=== PATIENT | female | born 1960 | race Caucasian/White ===

== ENCOUNTER 2016-10-30 06:58 | Day surgery (SDC) | payer OTHER, MEDICAID ==
--- NOTE | 2016-10-23 12:09 | MH ---
cc: HOLLEY TALBOT M.D. DATE OF ADMISSION: 10/30/2016 ADMITTING DIAGNOSIS Neck pain. The patient requires CT myelogram. HISTORY OF PRESENT ILLNESS This is a 56-year-old female who presented to us for evaluation of neck pain. She rates her neck pain as 9-10/10. 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 She states the left arm has been numb since then but for the last month she has noticed increased numbness in all distributions. She denies any right upper extremity radiculopathy or paresthesias. She has had physical therapy three years ago and had pain management with three epidural steroid injections which did not help. She has left hemiparesis from her stroke which effected the left upper extremity more than the left lower extremity. She is right-handed. Because of the cerebral aneurysm clipping she cannot have an MRI scan and relates that her last follow-up on the status of the aneurysm clips was about 5 years ago and did not notice any recurrence. She does not recall ever having a spinal myelogram before. PAST MEDICAL HISTORY 1. Two cerebral aneurysm clips April 02, 1994. 2. Tubal ligation 1989. 3. Kidney stones. 4. Radiofrequency ablation 2013. MEDICATIONS Current medications: 1. Diclofenac sodium 50 mg three times a day. 2. Fluticasone nasal spray 50 mcg each naris b.i.d. 3. Trazodone 50 mg p.o. q.h.s. 4. Levocetirizine 5 mg p.o. daily. 5. Levetiracetam ER 500 mg daily. 6. Baclofen 10 mg p.o. t.i.d. p.r.n. muscle spasms. 7. Hydrocodone/acetaminophen 7.5/325 mg p.o. q.6h. p.r.n. pain. 8. Omeprazole 40 mg p.o. daily. ALLERGIES 1. PENICILLIN. 2. DILANTIN. FAMILY HISTORY Noncontributory. SOCIAL HISTORY She drinks 0-2 drinks per day. She denies any substance abuse. REVIEW OF SYSTEMS GENERAL: She denies any fever or chills. EARS, NOSE, AND THROAT: No pharyngitis, exudates or bloody drainage from her nose. CARDIOVASCULAR: She denies any chest pain or palpitations. RESPIRATORY: No cough or shortness of breath. GASTROINTESTINAL: No nausea, vomiting or abdominal pain. INTEGUMENTARY: No rashes or pruritus. NEUROLOGIC: No difficulty with speech or memory. MUSCULOSKELETAL: Positive for neck pain. PSYCHIATRIC: Positive for anxiety and depression symptoms. HEMATOLOGIC: No bruising or bleeding tendencies. PHYSICAL EXAMINATION HEAD: Normocephalic, atraumatic. NECK: Supple. No carotid bruits heard on auscultation. LUNGS: Clear to auscultation bilaterally. HEART: Regular rate and rhythm. Normal S1, S2. ABDOMEN: Soft, nontender. Positive bowel sounds. SKIN: No cyanosis or erythema. MUSCULOSKELETAL: She has left hemiparesis in the left upper extremity more than the left lower extremity. She has difficulty with fine motor skills in the left hand. She ambulates without any assistive device. NEUROLOGIC: She is awake, alert and oriented. Cranial nerves II-XII appear grossly intact. Her speech is fluent. Comprehension is good. Sensation is diminished in the left upper extremity in all distributions. DATA REVIEWED CT of the cervical spine from May 15, 2016 reveals severe degenerative disc disease with disc osteophyte complex at the C4-C5 and C5-C6 level, and to a lesser extent the C6-C7 level. There appears to be posterior osteophytes at the C5-C6 level with some degree of stenosis. It is hard to delineate on plain CT scan. IMPRESSION A 55-year-old female with a chronic history of neck pain that radiates into the left upper extremity down to the forearm but not the hand. She also has chronic back pain. She has a remote history of cerebral aneurysm clipping with consequent stroke and left-sided weakness involving the arm and hand. She has had physical therapy for her neck in the past and frequently gets chiropractic treatments by a close friend who is a chiropractor. She also relates that the pain medications are not helping and she has develop tolerance being on the same medication for a long period of time. Her neck pain is worse over the last couple of months. She does have multilevel degenerative disc disease worse at the C5-C6 level, but also involving the C4-C5 and C6-C7 levels with osteophytes. PLAN We have recommended that she continue with pain management and conservative treatment measures, particularly cervical spinal stabilization and stretching exercises with heat and massage. We will obtain a CT myelogram to further evaluate the degree of stenosis. The patient is in agreement with the treatment plan and she is therefore scheduled accordingly. She will subsequently follow-up with us for further discussion of her results. Dictated by: Darion Baugh PA-C MD DIOGENES Murphy/TYLER /11:28 AM /11:56 AM
[~2016-10-30] VITALS: Ht 157.5 cm; Wt 56.8 kg
[~2016-10-30 06:58] MED LIST: BACL10TA PO; DICL50TA3 PO; FLUT50SP EACH NARE; HYDR-3580 PO; IPRA1POW8; LEVE500T11 PO; LEVOTAB PO; OMEP40CA2 PO; TRAZ50TA12 PO
[2016-10-30 07:19] VITALS: BP 151/97; PULSE 75; RESP 20; TEMP 97.7; O2SAT 95
[2016-10-30] MEDS ORDERED: LACTATED RINGER'S 1000 ML INJ 1,000 ML IV SCH ×2 (07:30→12:38)
[2016-10-30] MEDS ORDERED: DIAZEPAM 5 MG TAB PO SCH (07:30)
[2016-10-30 08:25] LABS: AUTOMATED NEUTROPHIL # 2.1 TH/MM3 (1.8-7.7); BASOPHIL # 0.2 TH/MM3 (0-0.2); BASOPHIL % 3.1 % (0.0-2.0); EOSINOPHIL # 0.3 TH/MM3 (0-0.4); EOSINOPHIL % 4.2 % (0.0-4.0); HEMATOCRIT 41.2 % (35.0-46.0); HEMO FLAGS DIFF FINAL; LYMPH % 50.6 % (9.0-44.0); MEAN CELL VOLUME 92.7 FL (80.0-100.0); MEAN CORPUSCULAR HEMOGLOBIN 30.8 PG (27.0-34.0); MEAN CORPUSCULAR HGB CONC 33.2 % (32.0-36.0); MONO % 7.2 % (0.0-8.0); NEUT % 34.9 % (16.0-70.0); PLATELET COUNT 354 TH/MM3 (150-450); RED BLOOD COUNT 4.45 MIL/MM3 (4.00-5.30)
[2016-10-30 08:34] LABS: INTERNATIONAL NORMALIZED RATIO 0.9 RATIO
[2016-10-30 08:57] LABS: BICARBONATE 22.9 MEQ/L (21.0-32.0)
[2016-10-30 08:58] LABS: POTASSIUM 4.9 MEQ/L (3.5-5.1)
[2016-10-30] MEDS ORDERED: IOHEXOL 300 MG/ML 50 ML BTL (for RAD DIAG) ONE (10:49)
[2016-10-30 11:05] VITALS: BP 114/75; PULSE 60; RESP 18; TEMP 97.5; O2SAT 94
[2016-10-30] MEDS ORDERED: SODIUM CHLOR 0.9% 1000 ML INJ 1,000 ML IV PRN (12:38)
--- NOTE | 2016-10-30 12:42 | PD.RAD ---
Post Procedure Progress Note Pre Procedure Diagnosis: (1) Cervical stenosis of spinal canal Post Procedure Diagnosis: (1) Cervical stenosis of spinal canal Procedure Date: Oct 30, 2016 Supervising Radiologist: Chao Maldonado Proceduralist/Assist: Azalea Bowie, RT(R)(CV), Carlos Shannon RT(R) Anesthesia: Local Plan of Activity Patient to Unit: [facility] Patient Condition: Good See PACS Report for procedural detail/treatment Spinal Procedure Myelogram Puncture Time: 10:40 Chao Maldonado MD Oct 30, 2016 12:42
[2016-10-30] MEDS ORDERED: ACETAMINOPHEN 325 MG TAB PO PRN (12:45)
[2016-10-30] MEDS ORDERED: oxyCODONE/ACETAMINOPHEN 5 MG/325 MG TAB PO PRN (12:45)
[2016-10-30] MEDS ORDERED: MORPHINE SULFATE 4 MG/ML INJ IV PRN (12:45)
[2016-10-30] MEDS ORDERED: ONDANSETRON HCL 4 MG/2 ML VIAL IV PRN (12:45)
--- NOTE | 2016-10-30 12:52 | RADRPT ---
EXAM DATE/TIME: 10/30/2016 10:50 [facility] COMPARISON: No previous studies available for comparison. INDICATIONS : Post myelogram; spinal stenosis. RADIATION DOSE: 32.17 CTDIvol (mGy) MEDICAL HISTORY : Aneurysm, intracranial. SURGICAL HISTORY : None. ENCOUNTER: Initial ACUITY: 1 day PAIN SCALE: 4/10 LOCATION: Bilateral middle TECHNIQUE: Volumetric scanning and 3D reconstructions of the cervical spine were performed. Multiplanar reconstr uctions in the sagittal, coronal and oblique axial planes were performed. Using automated exposure control and adjustment of the mA and/or kV according to patient size, radiation dose was kept as low as reasonably achievable to obtain optimal diagnostic quality images. DICOM format image data is jeanne ilable electronically for review and comparison. FINDINGS: Sagittal and coronal reconstructions show straightening of the normal lordotic curvature with multile delfino degenerative disc disease is evident by marginal spurs most prominent from C4-5 through C6-7. Min imal encroachment on the anterior epidural space from C3-4 through C6-7 there is no obvious cord comp romise. Vertebral body heights are maintained. No listhesis or fracture. Borderline prominent lymph n odes are seen in both cervical chains with the largest barbara cluster on the right measuring 1.3 on th e left 1.4 cm in diameter. Bilateral low-density thyroid nodules with the largest on the right measur ing 1.3 and on the left 1.7 cm in diameter. Detailed axial images as follows: . C2-C3: The bony spinal canal is normal in size. No evidence of disc bulge or herniation. The neural forami na are bilaterally patent. C3-C4: Minimal broad-based disc bulge encroaches on the anterior epidural space. Spinal canal is patent. C4-C5: Disc bulge encroaches on the anterior epidural space with mild central spinal stenosis but no cord co mpromise. Both neural foramina are adequate. C5-C6: Uncovertebral ridging with moderate spinal stenosis but no cord compromise. There is narrowing of bot h neural foramina, left greater than right. This may compromise the exiting left C6 nerve root. C6-C7: Uncovertebral ridging with moderate central spinal stenosis but no cord compromise. Both neural fredo fish are adequate. C7-T1: The bony spinal canal is normal in size. No evidence of disc bulge or herniation. The neural forami na are bilaterally patent. CONCLUSION: 1. Multilevel uncovertebral ridging most prominent at C5-6 and C6-7 with moderate spinal stenosis but no cord compromise at any cervical level. 2. Foraminal narrowing is most prominent bilaterally at C5-6, left worse than right. This may be dusty re enough to compromise the left C6 nerve root. 3. Borderline prominent lymph nodes in the cervical chains bilaterally. Findings are nonspecific but I would recommend a followup CT scan of the neck with contrast in 6 months to ensure stability. 4. In addition, bilateral low-density thyroid nodules. These areas can be reassessed on the followup CT scan of the neck in 6 months. Jalil Willis MD on October 30, 2016 at 12:42 Board Certified Radiologist. This report was verified electronically.
--- NOTE | 2016-10-30 13:42 | RADRPT ---
EXAM DATE/TIME: 10/30/2016 10:14 [facility] COMPARISON: CT CERVICAL SPINE W/O CONTRAST W 3D RECON, October 30, 2016, 10:50. INDICATIONS : Patient with chronic neck pain. MEDICAL HISTORY : 1.Headaches 2. UTI 3. seizures 4. CAD 5. GERD 6. Anxiety 7. depression SURGICAL HISTORY : !. Anuerysm clipping 2. tubal ligation 3. Lithotripsy ENCOUNTER: Initial ACUITY: > 1 year PAIN SCORE: 8/10 LOCATION: neck and back LUMBAR PUNCTURE TIME: 1011 hours FLUORO TIME: 3.4 minutes IMAGE SERIES: 0 CONTRAST: 18 cc Omnipaque (iohexol) 300 ACCESS LEVEL: L3-4 PROCEDURE : 1. Fluoroscopic guided lumbar puncture. 2. Instillation of intrathecal contrast. 3. Cervical myelogram. The risks, benefits and alternatives to the procedure were explained and verbal and written consent w as obtained. The site was prepped in sterile fashion. Full sterile technique was used, including ca p, mask, sterile gloves and gown and a large sterile sheet. Hand hygiene and 2% chlorhexidine and/or betadine/alcohol prep was utilized per protocol for cutaneous antisepsis. The skin and subcutaneous tissues were infiltrated with local anesthetic solution. With fluoroscopic guidance the lumbar thecal sac was punctured at level above and a diagnostic quanti ty of contrast is present in the subarachnoid space. Under fluoroscopic guidance contrast was moved t o the cervical region. The patient tolerated procedure well and there were no complications. CT scan is to be performed for further evaluation. FINDINGS: Slight undulation of the ventral contrast column, likely small disc protrusions at multiple levels in the mid to lower cervical spine. Nerve root sheaths fill in a symmetric fashion. No significant conc entric canal stenosis appreciated. CONCLUSION: Uncomplicated cervical myelogram as above. CT scan is to be performed for further evaluation. Chao Maldonado MD on October 30, 2016 at 13:38 Board Certified Radiologist. This report was verified electronically.
[2016-10-30 13:55] VITALS: BP 129/73; PULSE 63; RESP 18; O2SAT 95
== END 2016-10-30 14:05 | disposition home or self-care (01) ==
LOC: HROP 06:58 → HRIP 07:02 → HROP 14:05
PROVIDERS: ATTEND Neurological Surgery
DX: M48.02 Spinal stenosis, cervical region (principal); M50.321 Other cervical disc degeneration at C4-C5 level; I69.854 Hemiplegia and hemiparesis following other cerebrovascular disease affecting left non-dominant side; R51 Headache; N39.0 Urinary tract infection, site not specified; R56.9 Unspecified convulsions; I25.10 Atherosclerotic heart disease of native coronary artery without angina pectoris; K21.9 Gastro-esophageal reflux disease without esophagitis; G89.29 Other chronic pain; Z01.818 Encounter for other preprocedural examination; Z86.79 Personal history of other diseases of the circulatory system
CPT/HCPCS: 62302; 72125; 76376; 80048; 85025; 85610; 85730; J7120; Q9967

== ENCOUNTER → 2017-01-01 | Outpatient (CLI) | payer OTHER, MEDICAID ==
[~2017-01-01] MED LIST changes: +ALPR0.5T3 PO; +ESCI10TA PO; +HYDR-3583 PO; -IPRA1POW8; -OMEP40CA2 PO; +TRAZ100T6 PO; -TRAZ50TA12 PO
== END ==
LOC: CPRE 11:38
PROVIDERS: ATTEND Neurological Surgery
DX: M48.02 Spinal stenosis, cervical region (principal); M50.10 Cervical disc disorder with radiculopathy, unspecified cervical region; M50.30 Other cervical disc degeneration, unspecified cervical region

== ENCOUNTER 2017-01-08 05:57 | Observation (INO) | payer OTHER, MEDICAID ==
--- NOTE | 2017-01-07 18:29 | MH ---
cc: MD SWETHA,Avril SIU MD,CECILIO MEZA MD,DO Siena BOSCH MD, MD, ROHIT K. M.D. DATE OF ADMISSION 01/08/2017 ADMISSION DIAGNOSIS Multilevel cervical degenerative disk disease. HISTORY OF THE PRESENT ILLNESS This is a 56-year-old female who presented to us for evaluation of neck pain. She rates her neck pain as 9-10 out of 10. She has previously had two ruptured cerebral aneurysms and had a stroke which affected her left side in 1993. She states the left arm has been numb since then but for the last month she has noticed increased numbness in all distributions. She denies any right upper extremity radiculopathy or paresthesias. She has had physical therapy 3 years ago and had pain management with three epidural steroid injections which did not help. She has a left hemiparesis from her stroke that affected the left upper extremity more than left lower extremity. She is right-handed. Because of the cerebral aneurysm clipping she cannot have an MRI scan and relates that her last follow-up on the status of the aneurysm clips was about 5 years ago and did not notice any recurrence. She has recently had a CT myelogram of the cervical spine from October 30, 2016 which reveals advanced multilevel degenerative disk disease most prominent at the C5-C6 and C6-C7 levels with associated foraminal stenosis and lesser degree of spinal stenosis. There is also moderate C4-C5 disk degeneration. PAST MEDICAL HISTORY Significant for: 1. Depression. 2. Seizures. 3. Migraines. 4. Urinary tract infections. 5. Cerebral aneurysm clipping, two aneurysms on 04/02/1994. 6. Tubal ligation in 1989. 7. Kidney stone lithotripsy on 02/25/2014. CURRENT MEDICATIONS She is takin. Diclofenac 50 mg three times a day. This was placed on hold prior to surgical intervention. 2. Levocetirizine 5 milligrams daily. 3. Levetiracetam 500 mg one b.i.d. 4. Trazodone 50 mg daily. 5. Hydrocodone / Acetaminophen 7.5 / 325 three times a day. 6. She takes alprazolam 0.5 milligrams p.o. twice a day as needed for anxiety. 7. Escitalopram 10 milligrams p.o. daily. FAMILY HISTORY Her mother is alive 73 years old has hypertension. Her father is alive 75 years old in good health. Her sister is alive 54 years old has hypertension and two coronary stents. Her brother is alive 53 years old and well. Another brother is alive 42 years old and well. SOCIAL HISTORY She is and . She has three children. She smokes cigarettes two packs for 40 years. She drinks alcohol on social basis rarely. REVIEW OF SYSTEMS CONSTITUTIONAL: She denies any fever or chills. EARS, NOSE, AND THROAT: No pharyngitis, exudates or bloody drainage from nose. CARDIOVASCULAR: She denies any chest pain or palpitations. RESPIRATORY: No cough or shortness of breath. GENITOURINARY: No dysuria. Positive for urinary frequency and urgency. MUSCULOSKELETAL: Positive for joint pain. SKIN: No rashes or pruritus. NEUROLOGIC: No difficulty with speech. Positive for difficulty with memory. GASTROINTESTINAL: Positive for constipation. No nausea or abdominal pain. PSYCHIATRIC: Positive for anxiety and depression symptoms. ENDOCRINE: Negative for polyuria. HEMATOLOGIC: No bruising or bleeding tendencies. PHYSICAL EXAMINATION HEAD: Normocephalic, atraumatic. NECK: Supple. No carotid bruits heard on auscultation. LUNGS: Clear to auscultation bilaterally. CARDIOVASCULAR: Regular rate and rhythm, normal S1-S2. ABDOMEN: Soft, nontender. Positive bowel sounds. SKIN: Reveals no cyanosis or erythema. MUSCULOSKELETAL: She has left hemiparesis in particular left wrist extension and biceps. She has difficulty with fine motor skills on the left hand. She has 5/5 strength in the upper extremities. NEUROLOGIC: She is awake, alert, oriented. Speech is fluent and appropriate. Follows commands well. Sensation reveals hypersensitivity in the left upper extremity otherwise intact in the upper extremities. Comprehension is good. IMAGING Data reviewed, CT myelogram of the cervical spine reveals multilevel degenerative disk disease most prominent at C5-C6 and C6-C7 with associated foraminal stenosis and a lesser degree of spinal stenosis. There is also moderate C4-C5 disk degeneration. PLAN We have discussed the treatment options with the patient which include continued conservative treatment measures including physical therapy and pain management versus surgical intervention. We have discussed a C5-C6 an C6-C7 microdiskectomy foraminotomy and fusion as well as the risks, benefit, alternatives and recovery time. We have discussed the risks involved with surgery to include but not limited to bleeding, infection, muscle weakness, voice hoarseness, difficulty swallowing, heart attack, stroke, blood clots in the arms, legs and lungs, dysphasia, Sasha's syndrome, vascular injury with a risk of worsening stroke, nerve root or spinal cord injury with weakness or paralysis and incontinence, instrumentation failure and non fusion requiring further surgery as well as risk of anesthesia including pulmonary, cardiac arrest and DVT. No guarantees were given and she understands that she has multilevel degenerative disk disease which would not be addressed by the surgery and she may have some degree of ongoing neck pain. We have also discussed the importance of not smoking during the perioperative period before surgery to reduce the risk of cardiopulmonary complications with anesthesia and after surgery again for cardiopulmonary complications but also risk non fusion. The procedure was explained using spine models in the office and all of her questions were answered to her satisfaction. We have also discussed the risk of nonsurgical intervention and the pros and cons of them. The patient is requesting that we proceed with surgical intervention understanding the procedure as well as the risks involved and she is therefore scheduled accordingly. DICTATED BY: Darion Baugh PA-C MD DIOGENES Murphy/PAIGE /5:10 PM /5:43 PM
[~2017-01-08] VITALS: Ht 157.5 cm; Wt 58.9 kg
[~2017-01-08 05:57] MED LIST changes: -HYDR-3580 PO
[2017-01-08] MEDS ORDERED: METOPROLOL TARTRATE 25 MG TAB PO PRN (06:15)
[2017-01-08] MEDS: SODIUM CHLOR 0.9% 1000 ML INJ 1,000 ML IV SCH (06:15)
[2017-01-08] MEDS ORDERED: CHLORHEXIDINE GLUCONATE 2 % 1 PACK (2 CLOTHS) TOPICAL PRN (06:15)
[2017-01-08] MEDS ORDERED: LACTATED RINGER'S 1000 ML IV PRN (06:15)
[2017-01-08] MEDS ORDERED: INSULIN HUMAN REGULAR 1,000 UNITS/10 ML VIAL SQ PRN (06:15)
[2017-01-08] MEDS ORDERED: VANCOMYCIN HCL 1000 MG ON-CALL/NS 250 ML IV SCH ×2 (06:15)
[2017-01-08] MEDS ORDERED: SODIUM CHLORID 0.9% 500 ML IV PRN (06:15)
[2017-01-08] MEDS ORDERED: POVIDONE IODINE 5% (ANTISEPSIS KIT) 4 APPLICATIONS EACH NARE PRN (06:15)
[2017-01-08] MEDS ORDERED: THROMBIN (TOPICAL) 5,000 UNIT VIAL ONE ×2 (07:25→10:25)
[2017-01-08] MEDS ORDERED: VANCOMYCIN HCL 1000 MG VIAL ONE (07:25)
[2017-01-08] MEDS ORDERED: BUPIVACAINE/EPINEPHRINE 0.5% 50 ML VIAL ONE (07:25)
[2017-01-08] MEDS ORDERED: GELFOAM SIZE 100 ONE ×2 (07:25→10:25)
[2017-01-08] MEDS ORDERED: PROPOFOL 500 MG/50 ML INJ 100 ML ONE (07:39)
[2017-01-08] MEDS ORDERED: ACETAMINOPHEN 1000 MG/100 ML 100 ML IV ONE (07:39)
[2017-01-08] MEDS ORDERED: KETAMINE HCL 500 MG/5 ML VIAL ONE (07:40)
[2017-01-08] MEDS ORDERED: MIDAZOLAM HCL 2 MG/2 ML VIAL ONE (08:18)
[2017-01-08] MEDS ORDERED: FAMOTIDINE 20 MG/2 ML VIAL ONE (08:19)
[2017-01-08] MEDS ORDERED: HYDROmorphone HCL PF 2 MG/ML VIAL ONE (08:19)
[2017-01-08] MEDS ORDERED: DEXAMETHASONE SOD PHOS 4 MG/ML VIAL ONE (08:19)
[2017-01-08] MEDS ORDERED: DO NOT ADM ANY ANTICOAGULANT DRUGS PRN (11:48)
[2017-01-08] MEDS ORDERED: NS + KCL 20 MEQ INJ 1,000 ML IV SCH (11:54)
--- NOTE | 2017-01-08 11:58 | PD.OP ---
MD Nicholas Ramos MD Operative Report Date of Surgery: Jan 08, 2017 Preoperative Diagnosis: Cervical C5-6 and C6-7 severe degenerative disease with disc osteophyte complex associated spinal and foraminal stenosis; intractable neck pain with polyradiculopathy Postoperative Diagnosis: Same Procedure: Anterior cervical C5-6 and C6-7 microdiscectomy with interbody fusion; anterior C5-7 cervical plate placement; C5-6 and C6-7 cage placement; microsurgical technique Anesthesia: Gen. endotracheal by Nayan Barroso Surgeon: Rasta Lane M.D. Wash [employer] Cooler Operator(s): Miguelina Tineo Operation and Findings: Following administration of general endotracheal anesthesia, the patient received a gram of vancomycin and Decadron 10 mg intravenously. Sequential compression devices were placed in supine position on a [place] table and all pressure points adequately padded. The head secured in a donut and anterior cervical region then shaved and prepped with Chloraprep and sterilely draped with Ioban along with the usual sterile draping. A transverse skin incision on the left side of the neck was then made after infiltrating the skin with 0.5% Marcaine with epinephrine solution extending down through the platysma. At the anterior border of the sternocleidomastoid further dissection was undertaken developing a plane between the carotid sheath laterally and the trachea esophagus medially. The prevertebral fascia was exposed and dissected out. The medial attachments of the longus colli muscles were detached and a self- retaining retractor used for exposure. The C5-6 disc space was localized with a marking the disc space and using lateral fluoroscopy. [place] distraction screws 14 mm length were placed one in the C5 and one in the C7 body for interbody distraction and exposure. There was significant disc degeneration with disc height collapse and anterior osteophytes noted at both levels and the osteophytes were resected with a Leksell and annulus incised with a 15 blade and further dissection undertaken using microtechnique with microscope magnification. Diskectomy was undertaken with pituitaries and the endplates were also decorticated with curettes and drill bit. And more posteriorly there was disk osteophyte complex compressing the thecal sac along with a significant uncovertebral joint hypertrophy with foraminal stenosis which was decompressed along with removal of the posterior longitudinal ligaments at both levels. The foramen was decompressed bilaterally using a Kerrison's and palpation with a nerve hook, the exiting nerve roots were felt to be free. The area was then copiously irrigated. I then placed a Peek cage packed with local autograft bone at the C5-6 and C6-7 interspaces under fluoroscopy guidance. [place] distraction pins were removed and the holes plugged with Gelfoam for hemostasis. In order to facilitate the fusion and provide stabilization, a Precision spine cervical plate was then placed with two 14 mm variable angle screws in the C5 body, one in the C6 body and two 14 mm fixed angle screws in the C7 body. The plate screw locking mechanism was then engaged. AP and lateral fluoroscopy confirmed good placement of the construct and the retractor was then removed. Muscular bleeding points were cauterized with bipolar cautery and Gelfoam was then also used for hemostasis which was removed. The platysma was then approximated using 3-0 Vicryl interrupted stitches and 3-0 Vicryl subcuticular stitch also placed in an interrupted fashion, and final skin closure was with Mastisol and Steri-Strips. Sterile dressing was then applied. Neck immobilized in a Yocha Dehe J collar. The patient was then extubated and taken to the recovery room. There are no intraoperative complications and all sponge and needle counts were correct at the end of procedure. Estimated blood loss was about 150 cc. The patient did undergo intraoperative neurologic monitoring which remained stable throughout the surgery. Rasta Lane MD Jan 08, 2017 11:58
[2017-01-08] MEDS ORDERED: ONDANSETRON HCL 4 MG/2 ML VIAL IV PUSH PRN (12:00)
[2017-01-08] MEDS ORDERED: ACETAMINOPHEN/HYDROcodone 325 MG/10 MG TAB PO PRN (12:00)
[2017-01-08] MEDS ORDERED: ALPRAZolam 0.5 MG TAB PO PRN (12:00)
[2017-01-08] MEDS ORDERED: SODIUM CHLORIDE 0.9% 20 ML VIAL IV ONE (12:00)
[2017-01-08] MEDS ORDERED: LIDOCAINE HCL 1% PF 5 ML AMPULE OTHER ONE (12:00)
[2017-01-08] MEDS ORDERED: MORPHINE SULFATE 4 MG/ML INJ IV PUSH PRN (12:00)
[2017-01-08] MEDS ORDERED: NORMOSOL R INJ 1,000 ML IV ONE (12:00)
[2017-01-08] MEDS ORDERED: BACLOFEN 10 MG TAB PO PRN (12:00)
[2017-01-08] MEDS ORDERED: ONDANSETRON HCL 4 MG/2 ML VIAL IV PUSH ONE (12:00)
[2017-01-08] MEDS ORDERED: ALUMINUM/MAGNESIUM/SIMETH 30 ML CUP PO PRN (12:00)
[2017-01-08] MEDS ORDERED: PROMETHAZINE INJ 25 MG/ML VIAL IM PRN (12:00)
[2017-01-08] MEDS ORDERED: PROPOFOL 200 MG/20 ML AMP IV ONE (12:00)
[2017-01-08] MEDS ORDERED: ACETAMINOPHEN 325 MG TAB PO PRN (12:00)
[2017-01-08] MEDS ORDERED: ROCURONIUM INJ 50 MG/5 ML SYRINGE IV PUSH ONE (12:00)
[2017-01-08] MEDS ORDERED: SODIUM CHLORIDE 0.9% FLUSH 10 ML FLUSH IV FLUSH PRN (12:00)
[2017-01-08] MEDS ORDERED: DEXAMETHASONE SOD PHOS 4 MG/ML VIAL IV ONE (12:00)
[2017-01-08] MEDS ORDERED: MENTHOL LOZENGE BUCCAL PRN (12:00)
[2017-01-08] MEDS ORDERED: MAGNESIUM HYDROXIDE SUSP 30 ML CUP PO PRN (12:00)
[2017-01-08] MEDS ORDERED: CYCLOBENZAPRINE HCL 10 MG TAB PO PRN (12:00)
[2017-01-08] MEDS ORDERED: cloNIDine HCL 0.1 MG TAB PO PRN (12:00)
[2017-01-08] MEDS ORDERED: ePHEDrine/NS 25 MG/5 ML SYR IV ONE (12:00)
[2017-01-08] MEDS ORDERED: RESP: ALBUTEROL 2.5 MG/3 ML NEB (PRN) NEB (12:00)
[2017-01-08] MEDS ORDERED: *morphine SULFATE 8 MG/ML PERIprocedure ONLY ONE ×2 (12:19→12:24)
[2017-01-08] MEDS: CLINDAMYCIN INJ 600 MG in SODIUM CHLORIDE 0.9% INJ 100 ML IV SCH ×2 (13:26→20:55)
[2017-01-08] MEDS: DEXAMETHASONE SOD PHOS 4 MG/ML VIAL IV PUSH SCH ×2 (15:26→20:57)
[2017-01-08 16:30] VITALS: BP 110/72; PULSE 70; RESP 19; TEMP 96.8; O2SAT 94
[2017-01-08] MEDS: NICOTINE 21 MG/24 HR PATCH T-DERMAL SCH (17:00)
[2017-01-08] MEDS: REMOVE OLD PATCH T-DERMAL SCH (17:00)
[2017-01-08] MEDS: ACETAMINOPHEN/HYDROcodone 325 MG/10 MG TAB PO PRN ×2 (17:05→20:58)
[2017-01-08 18:30] VITALS: O2SAT 97
[2017-01-08 20:00] VITALS: BP 110/73; PULSE 79; RESP 17; TEMP 96.2; O2SAT 94
[2017-01-08] MEDS: DOCUSATE SODIUM 100 MG CAP PO SCH (20:58)
[2017-01-08] MEDS: SODIUM CHLORIDE 0.9% FLUSH 10 ML FLUSH IV FLUSH SCH (20:59)
[2017-01-08] MEDS ORDERED: ZOLPIDEM TARTRATE 5 MG TAB PO PRN (21:00)
[2017-01-08] MEDS ORDERED: KEPPRA 500 MG PO SCH (21:00)
[2017-01-08] MEDS ORDERED: traZODone HCL 100 MG TAB PO SCH (21:00)
[2017-01-08] MEDS: FLUTICASONE PROPIONATE 50 MCG/ACT 16 GM NASAL SPRAY EACH NARE SCH (21:08)
[2017-01-09 00:15] VITALS: BP 130/71; PULSE 72; RESP 16; TEMP 96.9; O2SAT 92
[2017-01-09] MEDS: DEXAMETHASONE SOD PHOS 4 MG/ML VIAL IV PUSH SCH (02:08)
[2017-01-09] MEDS: CLINDAMYCIN INJ 600 MG in SODIUM CHLORIDE 0.9% INJ 100 ML IV SCH ×2 (02:08→06:16)
[2017-01-09 04:30] VITALS: BP 147/83; PULSE 71; RESP 16; TEMP 96.7; O2SAT 92
[2017-01-09] MEDS: ACETAMINOPHEN/HYDROcodone 325 MG/10 MG TAB PO PRN (06:16)
[2017-01-09] MEDS: SODIUM CHLOR 0.9% 1000 ML INJ 1,000 ML IV SCH (06:18)
[2017-01-09 08:00] VITALS: BP 141/81; PULSE 67; RESP 19; TEMP 96.7; O2SAT 96
--- NOTE | 2017-01-09 08:07 | RADRPT ---
EXAM DATE/TIME: 01/08/2017 09:04 [facility] COMPARISON: No previous studies available for comparison. INDICATIONS : Cervical spine C5-6 C6-7 ACDF. OR. MEDICAL HISTORY : Aneurysm, intracranial. SURGICAL HISTORY : None. ENCOUNTER: Initial ACUITY: 1 day PAIN SCORE: Non-responsive. LOCATION: C-spine C5-6 C6-7 FINDINGS: There is anterior cervical fusion with a plate anteriorly from C5-C7. The vertebral bodies are normal in alignment on the lateral view. There is no evidence of acute fracture. CONCLUSION: 1. Postsurgical changes as above. Sylvester Archer MD on January 09, 2017 at 8:05 Board Certified Radiologist. This report was verified electronically.
[2017-01-09] MEDS: REMOVE OLD PATCH T-DERMAL SCH (08:12)
[2017-01-09] MEDS: NICOTINE 21 MG/24 HR PATCH T-DERMAL SCH (08:12)
[2017-01-09] MEDS: DOCUSATE SODIUM 100 MG CAP PO SCH (08:12)
[2017-01-09] MEDS: FLUTICASONE PROPIONATE 50 MCG/ACT 16 GM NASAL SPRAY EACH NARE SCH (08:14)
[2017-01-09] MEDS: SODIUM CHLORIDE 0.9% FLUSH 10 ML FLUSH IV FLUSH SCH (08:15)
[2017-01-09] MEDS ORDERED: PANTOPRAZOLE SOD 40 MG DELAYED RELEASE TAB PO SCH (09:00)
[2017-01-09] MEDS ORDERED: LEVOCETIRIZINE 5 MG PO SCH (09:00)
[2017-01-09] MEDS ORDERED: ESCITALOPRAM OXALATE 10 MG TAB PO SCH (09:00)
--- NOTE | 2017-01-09 09:19 | HHI.NSPN ---
History Chief Complaint: Mild paresthesias LUE but feeling much better. Interval History 01/09/17: Pt s/p C5/C6 and C6/C7 ACF on 01/08/17. Pt doing very well states mild incisional pain. No radiculopathy in UEs. Mild paresthesias left forearm. Review of Systems General: Negative for: fever, chills, insomnia Respiratory: Negative for: shortness of breath, cough, sputum Cardiovascular: Negative for: chest pain Gastrointestinal: Negative for: nausea, vomitting, diarrhea, constipation Exam Results Vital Signs Date Time Temp Pulse Resp B/P (MAP) Pulse Ox O2 Delivery O2 Flow Rate FiO2 01/09/17 08:00 96.7 67 19 141/81 (101) 96 01/08/17 18:30 Nasal Cannula 2.00 Intake and Output 01/09/17 01/09/17 01/10/17 08:00 16:00 00:00 Intake Total 688 ml Output Total 350 ml Balance 338 ml Physical Examination Resp: CTA bilaterally Heart: NSR no murmurs Abd: Soft positive bs Skin: Incision clean and dry. Muscle: Moves all 4 extremities well. Neuro: Pt awake and alert. Follows commands well. Speech clear and appropriate. Mild paresthesias left forearm otherwise sensation intact. Lab, Micro, Other Results Last Impressions Cervical Spine X-Ray 01/08/17 0000 Signed Impressions: Service Date/Time: Sunday, January 08, 2017 09:04 - CONCLUSION: 1. Postsurgical changes as above. Sylvester Archer MD Medical Decision Making Impression and Plan A: 56 y/o FM s/p C5/C6 and C6/C7 ACF P: Discharge pt home. Discussed restrictions. No smoking or NSAIDs. Darion Baugh Jan 09, 2017 9:19 am
[2017-01-09 09:31] VITALS: O2SAT 91
== END 2017-01-09 13:16 | disposition home or self-care (01) ==
LOC: HSDC 05:57 → HSDI 11:57 → N06A 16:16
PROVIDERS: ADMIT Neurological Surgery; ATTEND Neurological Surgery
DX: M48.02 Spinal stenosis, cervical region (principal); M50.322 Other cervical disc degeneration at C5-C6 level; M50.323 Other cervical disc degeneration at C6-C7 level; M50.321 Other cervical disc degeneration at C4-C5 level; M25.78 Osteophyte, vertebrae; I69.354 Hemiplegia and hemiparesis following cerebral infarction affecting left non-dominant side; F32.9 Major depressive disorder, single episode, unspecified; F17.210 Nicotine dependence, cigarettes, uncomplicated; Z79.899 Other long term (current) drug therapy; Z01.811 Encounter for preprocedural respiratory examination
CPT/HCPCS: 00600; 20936; 22551; 22552; 22853; 72040; 76000; 94150; 96361; 96365; 96366; 96375; 96376; C1713; G0378; J0131; J1100; J1170; J2250; J2270; J2405; J3010; J3370; J3480; J7030; J7050; J7120; L0150; L0172